=== PATIENT | female | born 1945 | race Caucasian/White ===

== ENCOUNTER 2017-11-06 12:57 | Emergency (ER) | payer OTHER ==
[2017-11-06] MEDS ORDERED: NS 0.9% 1000 ML* 1,000 ML IV ONE (13:57)
--- NOTE | 2017-11-06 14:39 | RAD ---
HISTORY: Chest pain COMPARISONS: None VIEWS: 1: frontal portable view of the chest at 2:22 PM FINDINGS: LINES AND TUBES: None. CARDIOMEDIASTINAL SILHOUETTE: The cardiomediastinal silhouette is normal for portable technique. PLEURA: The costophrenic angles are sharp. No pleural abnormalities are noted. LUNG PARENCHYMA: The lungs are clear. ABDOMEN: The upper abdomen is clear. There is no subphrenic gas. BONES AND SOFT TISSUES: No bone or soft tissue abnormalities are noted. IMPRESSION: NO ACTIVE CARDIOPULMONARY DISEASE.
[2017-11-06 15:07] LABS: ABS Basophils 0 10^3/ul (0-0.2); ABS Eosinophils 0 10^3/ul (0-0.6); ABS Lymphocytes 1.3 10^3/ul (1.0-4.8); ABS Monocytes 0.4 10^3/ul (0-0.8); ABS Nucleated RBC 0 10^3/ul; Eosinophil % 0.8 % (0-6); Hematocrit 44 % (35-47); Hemoglobin 15.3 g/dl (12.0-16.0); Lymphocyte % 21.8 % (25-47); Mean Corpuscular HGB Conc 35 g/dl (31-36); Mean Corpuscular Hemoglobin 32 pg (27-31); Mean Corpuscular Volume 92 fL (80-97); Mean Platelet Volume 7 um3 (7.4-10.4); Nucleated Red Blood Cells % 0.1; Platelet Count 215 10^3/ul (150-450); Red Blood Count 4.83 10^6/ul (4.0-5.4); Red Cell Distribution Width 13 % (10.5-15); White Blood Count 5.8 10^3/ul (3.5-10.8)
[2017-11-06 15:27] LABS: EGFR Non-African American 77.6 (>60)
[2017-11-06 15:32] LABS: Urine Appearance Clear; Urine Blood Negative (Negative); Urine Color Yellow; Urine Ketones Negative (Negative); Urine Protein Negative (Negative); Urine Specific Gravity 1.011 (1.010-1.030); Urine Urobilinogen Negative (Negative)
[2017-11-06 15:54] LABS: INR 0.94 (0.77-1.02)
--- NOTE | 2017-11-06 18:31 | ED ---
Balta Cortez Angela, scribed for Rohit Lim MD on 11/06/17 at 1410 . HPI Chest Pain - HPI Summary HPI Summary: This pt is a 72 y/o female presenting to [facility] c/o mid sternal chest pressure today. Pt reports she was at Dr. Vines's office today at approximately 11:15 AM to get her holter monitor (which she has had for 24 hours) checked out. While sitting in the waiting room, pt notes feel anxious and having a rapid onset of chest pressure. She describes her pain in the mid sternum and non-radiating. At its worst the pain was between 3 and 4 out of 10 in severity. Pt notes her chest pressure lasted 5 minutes and gradually resolved. Pt denies nausea, diaphoresis, SOB, palpitations, calf pain, swelling in LE. She still her stone rougher, who recommended her to come to the ED. Pt states she has never had anything like this before. She had a stress test in July 2017 but did not pass it. Her stone rougher spoke to her about doing a nuclear test. Her stone rougher is Dr. Rios. PMHx includes stomach erosion, pelvic pain (for which she is seeing her ObGyn). Pt stopped taking omeprazole about 1 week ago. Surgeries: cholecystectomy. Allergies: sulfa meds. - History of Current Complaint Chief Complaint: EDChestPainROMI Time Seen by Provider: 11/06/17 13:31 Hx Obtained From: Patient Onset/Duration: Started Hours Ago, Resolved Timing: Lasting Minutes - ~5 minutes Current Severity: None Pain Intensity: 0 Pain Scale Used: 0-10 Numeric Chest Pain Location: Mid Sternal Chest Pain Radiates: No Character: Pressure/Squeezing - pressure Aggravating Factor(s): Nothing Alleviating Factor(s): Spontaneous Resolution Associated Signs and Symptoms: Positive: Chest Pain. Negative: Shortness of Breath, Diaphoresis, Nausea, Palpitations - Allergy/Home Medications Allergies/Adverse Reactions: Allergies Allergy/AdvReac Type Severity Reaction Status Date / Time Sulfa Antibiotics Allergy Severe Swelling Verified 03/06/15 12:34 PMH/Surg Hx/FS Hx/Imm Hx Endocrine/Hematology History: Denies: Hx Diabetes Respiratory History: Reports: Hx Asthma - TRIGGERED BY [employer] E[employer] GI History: Reports: Other GI Disorders - stomach erosion Musculoskeletal History: Reports: Hx Arthritis - HANDS KNEES Sensory History: Denies: Hx Contacts or Glasses, Hx Hearing Aid Opthamlomology History: Denies: Hx Contacts or Glasses Neurological History: Reports: Hx Migraine - TWO WKS AGO OTHERWISE NOT FOR A LONG TIME - Cancer History Hx Chemotherapy: No Hx Radiation Therapy: No - Surgical History Surgery Procedure, Year, and Place: 1960 INGUINAL HERNIA REPAIR [facility]. [place] [facility] [place] [facility] [place]LECY[place]OM[place] [facility] [place]. [place] BRE[place]OP[place] [facility] [place]. 2011 L PHACO WITH [place]OL [facility] [place]. 2009 EXPLORATORY [facility] Hx Anesthesia Reactions: No Infectious Disease History: No Infectious Disease History: Denies: Traveled Outside the [place] in Last 30 Days - Family History Known Family History: Positive: Cardiac Disease - Father: fatal [place] at age 71. - Social History Lives: With Family - Alcohol Use: Daily - 1 glass of wine every day Substance Use Type: Reports: None Smoking Status (MU): Never Smoked Tobacco Review of Systems Negative: Fever, Chills, Skin Diaphoresis Positive: Chest Pain - pressure. Negative: Palpitations Negative: Shortness Of Breath Negative: Nausea All Other Systems Reviewed And Are Negative: Yes Physical Exam - Summary Physical Exam Summary: General: well-appearing, no pain distress Skin: warm, color reflects adequate perfusion, dry Head: normal Eyes: EOMI, YESSENIA ENT: normal Neck: supple, nontender Respiratory: CTA, breath sounds present Cardiovascular: RRR Chest: tenderness to palpation on the mid sternum Abdomen: soft, nontender Bowel: present Musculoskeletal: normal, strength/ROM intact Neurological: normal, sensory/motor intact, A&O x3 Psychological: affect/mood appropriate Triage Information Reviewed: Yes Vital Signs On Initial Exam: Initial Vitals Temp Pulse Resp BP Pulse Ox 96.9 F 80 18 124/68 98 11/06/17 13:00 11/06/17 13:00 11/06/17 13:00 11/06/17 13:00 11/06/17 13:00 Vital Signs Reviewed: Yes Diagnostics - Vital Signs Vital Signs Temp Pulse Resp BP Pulse Ox 11/06/17 13:00 96.9 F 80 18 124/68 98 - Laboratory Lab Results: Lab Results 11/06/17 11/06/17 11/06/17 Range/Units 14:51 14:51 14:51 WBC (3.5-10.8) 10^3/ul RBC (4.0-5.4) 10^6/ul Hgb (12.0-16.0) g/dl Hct (35-47) % MCV (80-97) fL MCH (27-31) pg MCHC (31-36) g/dl RDW (10.5-15) % Plt Count (150-450) 10^3/ul MPV (7.4-10.4) um3 Neut % (Auto) (38-83) % Lymph % (Auto) (25-47) % [place] % (Auto) (1-9) % Eos % (Auto) (0-6) % Baso % (Auto) (0-2) % Absolute Neuts (auto) (1.5-7.7) 10^3/ul Absolute Lymphs (auto) (1.0-4.8) 10^3/ul Absolute Monos (auto) (0-0.8) 10^3/ul Absolute Eos (auto) (0-0.6) 10^3/ul Absolute Basos (auto) (0-0.2) 10^3/ul Absolute Nucleated RBC 10^3/ul Nucleated RBC % INR (Anticoag Therapy) 0.94 (0.77-1.02) APTT 31.9 (26.0-36.3) seconds D-Dimer, Quantitative < 200 (Less Than 230) ng/mL Sodium 137 (133-145) mmol/L Potassium 4.2 (3.5-5.0) mmol/L Chloride 105 (101-111) mmol/L Carbon Dioxide 26 (22-32) mmol/L Anion Gap 6 (2-11) mmol/L BUN 18 (6-24) mg/dL Creatinine 0.74 (0.51-0.95) mg/dL Est GFR ( Amer) 99.8 (>60) Est GFR (Non-Af Amer) 77.6 (>60) BUN/Creatinine Ratio 24.3 H (8-20) Glucose 99 (70-100) mg/dL Lactic Acid (0.5-2.0) mmol/L Calcium 9.1 (8.6-10.3) mg/dL Magnesium 2.2 (1.9-2.7) mg/dL Total Bilirubin 0.70 (0.2-1.0) mg/dL AST 16 (13-39) U/L ALT 16 (7-52) U/L Alkaline Phosphatase 49 (34-104) U/L Total Creatine Kinase 30 (10-223) U/L CK-MB (CK-2) 0.7 (0.6-6.3) ng/mL Troponin I 0.00 (<0.04) ng/mL C-Reactive Protein < 1.00 (< 5.00) mg/L B-Natriuretic Peptide 41 ( - 100) pg/mL Total Protein 6.4 (6.4-8.9) g/dL Albumin 3.8 (3.2-5.2) g/dL Globulin 2.6 (2-4) g/dL Albumin/Globulin Ratio 1.5 (1-3) Lipase 29 (11.0-82.0) U/L TSH 0.47 (0.34-5.60) mcIU/mL Urine Color Urine Appearance Urine pH (5-9) Ur Specific [place] (1.010-1.030) Urine Protein (Negative) Urine Ketones (Negative) Urine Blood (Negative) Urine Nitrate (Negative) Urine Bilirubin (Negative) Urine Urobilinogen (Negative) Ur Leukocyte Esterase (Negative) Urine Glucose (Negative) 11/06/17 11/06/17 11/06/17 Range/Units 14:51 14:51 15:22 WBC 5.8 (3.5-10.8) 10^3/ul RBC 4.83 (4.0-5.4) 10^6/ul Hgb 15.3 (12.0-16.0) g/dl Hct 44 (35-47) % MCV 92 (80-97) fL MCH 32 H (27-31) pg MCHC 35 (31-36) g/dl RDW 13 (10.5-15) % Plt Count 215 (150-450) 10^3/ul MPV 7 L (7.4-10.4) um3 Neut % (Auto) 69.2 (38-83) % Lymph % (Auto) 21.8 L (25-47) % [place] % (Auto) 7.5 (1-9) % Eos % (Auto) 0.8 (0-6) % Baso % (Auto) 0.7 (0-2) % Absolute Neuts (auto) 4.0 (1.5-7.7) 10^3/ul Absolute Lymphs (auto) 1.3 (1.0-4.8) 10^3/ul Absolute Monos (auto) 0.4 (0-0.8) 10^3/ul Absolute Eos (auto) 0 (0-0.6) 10^3/ul Absolute Basos (auto) 0 (0-0.2) 10^3/ul Absolute Nucleated RBC 0 10^3/ul Nucleated RBC % 0.1 INR (Anticoag Therapy) (0.77-1.02) APTT (26.0-36.3) seconds D-Dimer, Quantitative (Less Than 230) ng/mL Sodium (133-145) mmol/L Potassium (3.5-5.0) mmol/L Chloride (101-111) mmol/L Carbon Dioxide (22-32) mmol/L Anion Gap (2-11) mmol/L BUN (6-24) mg/dL Creatinine (0.51-0.95) mg/dL Est GFR ( Amer) (>60) Est GFR (Non-Af Amer) (>60) BUN/Creatinine Ratio (8-20) Glucose (70-100) mg/dL Lactic Acid 0.7 (0.5-2.0) mmol/L Calcium (8.6-10.3) mg/dL Magnesium (1.9-2.7) mg/dL Total Bilirubin (0.2-1.0) mg/dL AST (13-39) U/L ALT (7-52) U/L Alkaline Phosphatase (34-104) U/L Total Creatine Kinase (10-223) U/L CK-MB (CK-2) (0.6-6.3) ng/mL Troponin I (<0.04) ng/mL C-Reactive Protein (< 5.00) mg/L B-Natriuretic Peptide ( - 100) pg/mL Total Protein (6.4-8.9) g/dL Albumin (3.2-5.2) g/dL Globulin (2-4) g/dL Albumin/Globulin Ratio (1-3) Lipase (11.0-82.0) U/L TSH (0.34-5.60) mcIU/mL Urine Color Yellow Urine Appearance Clear Urine pH 6.0 (5-9) Ur Specific [place] 1.011 (1.010-1.030) Urine Protein Negative (Negative) Urine Ketones Negative (Negative) Urine Blood Negative (Negative) Urine Nitrate Negative (Negative) Urine Bilirubin Negative (Negative) Urine Urobilinogen Negative (Negative) Ur Leukocyte Esterase Negative (Negative) Urine Glucose Negative (Negative) 11/06/17 Range/Units 17:15 WBC (3.5-10.8) 10^3/ul RBC (4.0-5.4) 10^6/ul Hgb (12.0-16.0) g/dl Hct (35-47) % MCV (80-97) fL MCH (27-31) pg MCHC (31-36) g/dl RDW (10.5-15) % Plt Count (150-450) 10^3/ul MPV (7.4-10.4) um3 Neut % (Auto) (38-83) % Lymph % (Auto) (25-47) % [place] % (Auto) (1-9) % Eos % (Auto) (0-6) % Baso % (Auto) (0-2) % Absolute Neuts (auto) (1.5-7.7) 10^3/ul Absolute Lymphs (auto) (1.0-4.8) 10^3/ul Absolute Monos (auto) (0-0.8) 10^3/ul Absolute Eos (auto) (0-0.6) 10^3/ul Absolute Basos (auto) (0-0.2) 10^3/ul Absolute Nucleated RBC 10^3/ul Nucleated RBC % INR (Anticoag Therapy) (0.77-1.02) APTT (26.0-36.3) seconds D-Dimer, Quantitative (Less Than 230) ng/mL Sodium (133-145) mmol/L Potassium (3.5-5.0) mmol/L Chloride (101-111) mmol/L Carbon Dioxide (22-32) mmol/L Anion Gap (2-11) mmol/L BUN (6-24) mg/dL Creatinine (0.51-0.95) mg/dL Est GFR ( Amer) (>60) Est GFR (Non-Af Amer) (>60) BUN/Creatinine Ratio (8-20) Glucose (70-100) mg/dL Lactic Acid (0.5-2.0) mmol/L Calcium (8.6-10.3) mg/dL Magnesium (1.9-2.7) mg/dL Total Bilirubin (0.2-1.0) mg/dL AST (13-39) U/L ALT (7-52) U/L Alkaline Phosphatase (34-104) U/L Total Creatine Kinase (10-223) U/L CK-MB (CK-2) (0.6-6.3) ng/mL Troponin I 0.01 (<0.04) ng/mL C-Reactive Protein (< 5.00) mg/L B-Natriuretic Peptide ( - 100) pg/mL Total Protein (6.4-8.9) g/dL Albumin (3.2-5.2) g/dL Globulin (2-4) g/dL Albumin/Globulin Ratio (1-3) Lipase (11.0-82.0) U/L TSH (0.34-5.60) mcIU/mL Urine Color Urine Appearance Urine pH (5-9) Ur Specific [place] (1.010-1.030) Urine Protein (Negative) Urine Ketones (Negative) Urine Blood (Negative) Urine Nitrate (Negative) Urine Bilirubin (Negative) Urine Urobilinogen (Negative) Ur Leukocyte Esterase (Negative) Urine Glucose (Negative) Result Diagrams: 11/06/17 14:51 11/06/17 14:51 Lab Statement: Any lab studies that have been ordered have been reviewed, and results considered in the medical decision making process. - Radiology Chest XR Xray Interpretation: No Acute Changes - IMPRESSION: No active cardiopulmonary disease. Dr. Lim has reviewed this radiology report. Radiology Interpretation Completed By: Radiologist - EKG 13:04 Cardiac Rate: NL EKG Rhythm: Sinus Rhythm - at [address] Segment: Normal Ectopy: None Chest Pain Course/Dx - Course Course Of Treatment: Medications reviewed. Allergies noted. Chest XR is negative. DISCUSSED WITH DR RIOS. DISCUSSED RESULTS WITH PATIENT AND . DISCUSSED ADMISSION VERSES OUT PATIENT FOLLOW UP WITH PATIENT AND ; THEY PREFER OUT PATIENT FOLLOW UP. F/U [employer] C[employer] GRADER; RETURN IF WORSE. - Diagnoses Provider Diagnoses: Chest pain - Provider Notifications Discussed Care Of Patient With: Tammy Rios Time Discussed With Above Provider: 14:49 Instructed by Provider To: Other - I discussed pt care with Dr. Rios, pt's stone rougher. Discharge - Discharge Plan Condition: Stable Disposition: HOME Patient Education Materials: Chest Pain (ED) Referrals: Taina Figueredo MD [Primary Care Provider] - Tammy Rios MD [Medical Doctor] - Additional Instructions: FOLLOW UP WITH YOUR [employer] P[employer] CARD GRADER, DR RIOS. RETURN TO THE EMERGENCY DEPARTMENT FOR ANY WORSENING OF YOUR CONDITION; CHEST PAIN, SHORTNESS OF BREATH, YOU FEEL ILL OR QUESTIONS OR CONCERNS. The documentation as recorded by the Balta butler Angela accurately reflects the service I personally performed and the decisions made by me, Rohit Lim MD.
[2017-11-06 19:15] VITALS: BP 124/61
== END 2017-11-06 19:15 | disposition home or self-care (01) ==
LOC: ED 12:57
DX: R07.89 Other chest pain (principal); Z88.2 Allergy status to sulfonamides
CPT/HCPCS: 36415; 71045; 80053; 81003; 82550; 82553; 83605; 83690; 83735; 83880; 84443; 84484; 85025; 85379; 85610; 85730; 86140; 93005; 96360; 96361; 99283

== ENCOUNTER 2022-08-08 11:42 | Observation (INO) ==
[2022-08-08] MEDS ORDERED: NS 0.9% 1000 ml BAG 1,000 ML IV ONE (11:55)
[2022-08-08 12:11] LABS: ABS Monocytes 0.7 10^3/ul (0-0.8); ABS Neutrophils 7.2 10^3/ul (1.5-7.7); Eosinophil % 0.4 %; Hematocrit 42 % (35-47); Lymphocyte % 11.2 %; Mean Corpuscular HGB Conc 33 g/dL (31-36); Mean Corpuscular Hemoglobin 31 pg (27-31); Mean Corpuscular Volume 94 fL (80-97); Mean Platelet Volume 7.6 fL (7.4-10.4); Platelet Count 259 10^3/uL (150-450); Red Blood Count 4.52 10^6 /uL (3.70-4.87); Red Cell Distribution Width 13 % (10-15); White Blood Count 8.9 10^3/uL (3.5-10.8)
[2022-08-08 12:54] LABS: Albumin 3.8 g/dL (3.2-5.2); Albumin/Globulin Ratio 1.6 (1-3); Calcium 9.2 mg/dL (8.6-10.3); Globulin 2.4 g/dL (2-4); Magnesium 1.9 mg/dL (1.9-2.7); Total Bilirubin 0.7 mg/dL (0.2-1.0); Total Protein 6.2 g/dL (6.4-8.9); eGFR CKD-EPI 59.5 (>60)
[2022-08-08 13:08] LABS: TSH Ultra Thyroid Stim Horm 0.57 mcIU/mL (0.34-5.60)
[2022-08-08 14:12] LABS: High Sensitivity Troponin 1 Hr 14 pg/mL (<15)
[2022-08-08 15:04] LABS: Urine Appearance Cloudy; Urine Bilirubin Negative (Negative); Urine Blood 1+ (Negative); Urine Color Yellow; Urine Glucose Negative (Negative); Urine Ketones Negative (Negative); Urine Nitrite Negative (Negative); Urine Protein Negative (Negative); Urine Specific Gravity 1.009 (1.002-1.030); Urine Urobilinogen Negative (Negative)
[2022-08-08 15:08] LABS: Urine Bacteria Absent (Absent); Urine Red Blood Cell Trace(0-2/hpf) (Absent); Urine Squamous Epithelial Cell Present (Absent); Urine White Blood Cell Absent (Absent)
[2022-08-08] MEDS ORDERED: Al Hydrox/Mg Hydrox/Simet LIQ 30 ML UDC PO PRN (15:19)
[2022-08-08] MEDS ORDERED: NS 0.9% 1000 ml BAG 1,000 ML IV SCH (15:30)
[2022-08-08] MEDS ORDERED: Enoxaparin 40 MG/0.4 ML SYR SUBCUT SCH (18:00)
[2022-08-08] MEDS: Carbidopa/Levodop 25/100 MG TAB PO SCH (20:47)
[2022-08-09] MEDS: Carbidopa/Levodop 25/100 MG TAB PO SCH ×3 (08:36→12:20)
[2022-08-09 12:08] VITALS: BP 115/71
== END 2022-08-09 15:45 | disposition home or self-care (01) ==
LOC: EDHOLD 11:42 → ED 11:42 → SUATTDRO 15:20 → MEDTELE 08-09 03:44
PROVIDERS: ADMIT Internal Medicine; ATTEND Student in an Organized Health Care Education/Training Program